=== PATIENT | male | born 1990 | race Two or more races ===

== ENCOUNTER 2016-08-10 10:07 | Inpatient (IN) | payer BC ==
[2016-08-10 11:01] VITALS: BMI 21.9
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
[2016-08-10] MEDS ORDERED: P-EPHED 60MG/TRIPROLIDI 2.5MG TABLET PO PRN (12:22)
[2016-08-10] MEDS ORDERED: MAGNESIUM CITRATE 300 ML BOTTLE PO PRN (12:22)
[2016-08-10] MEDS ORDERED: MAGNESIUM HYDROX 2400MG/30ML ORAL SUSPENSION 30 ML CUP PO PRN (12:22)
[2016-08-10] MEDS ORDERED: METHADONE HCL 10 MG TABLET (FOR DETOX USE ONLY) PO ONE ×2 (12:22→23:00)
[2016-08-10] MEDS ORDERED: MENTHOL/PHENOL 1 EACH UD MM PRN (12:22)
[2016-08-10] MEDS ORDERED: ACETAMINOPHEN 325 MG TABLET (FP) PO PRN (12:22)
[2016-08-10] MEDS ORDERED: hydrOXYzine PAMOATE 50 MG CAPSULE (FP) PO PRN (12:22)
[2016-08-10] MEDS ORDERED: IBUPROFEN 400 MG TABLET (FP) PO PRN (12:22)
[2016-08-10] MEDS ORDERED: diphenhydrAMINE HCL 50 MG CAPSULE PO PRN (12:22)
[2016-08-10] MEDS ORDERED: MAG HYDROX/AL HYDROX/SIMETH 30 ML UNIT-DOSE CUP PO PRN (12:22)
[2016-08-10] MEDS ORDERED: guaiFENesin/D-METHORPHAN HB 10 ML UNIT-DOSE CUPS PO PRN (12:22)
[2016-08-10] MEDS ORDERED: LOPERAMIDE HCL 2 MG CAPSULE PO PRN (12:22)
[2016-08-10] MEDS ORDERED: diazePAM 5 MG TABLET PO ONE (12:43)
[2016-08-10] MEDS ORDERED: ALBUTEROL SO4 6.7 GM HFA INHALER IH PRN (13:18)
[2016-08-10] MEDS: NICOTINE 21 MG/24 HOURS TOPICAL PATCH TD SCH (14:18)
[2016-08-10] MEDS: GABAPENTIN 400 MG CAPSULE (FP) PO SCH ×2 (14:18→22:05)
[2016-08-10] MEDS: diazePAM 5 MG TABLET PO SCH ×2 (14:19→22:05)
[2016-08-10] MEDS: NICOTINE POLACRILEX 2 MG GUM BC PRN (14:19)
[2016-08-10 15:39] LABS: HIV 1 & 2 AB NEGATIVE; HIV 1 AGp24 NEGATIVE
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
[2016-08-10 17:24] LABS: URINE APPEARANCE CLEAR; URINE BILIRUBIN NEGATIVE (NEGATIVE); URINE BLOOD NEGATIVE (NEGATIVE); URINE COLOR DKYELLOW; URINE GLUCOSE (UA) NEGATIVE (NEGATIVE); URINE KETONE TRACE (NEGATIVE); URINE LEUK ESTERASE NEGATIVE (NEGATIVE); URINE NITRITE NEGATIVE (NEGATIVE); URINE PROTEIN NEGATIVE (NEGATIVE); URINE UROBILINOGEN 2.0 E.U/dl E.U./dl (0.2-1.0)
[2016-08-10] MEDS: diazePAM 5 MG TABLET PO PRN (18:41)
[2016-08-10] MEDS: THIAMINE HCL 100 MG TABLET (FP) PO SCH (22:04)
[2016-08-10] MEDS: cloNIDine HCL 0.1 MG TABLET PO SCH (22:05)
[2016-08-10] MEDS: ZOLPIDEM TARTRATE 10 MG TABLET (PARK CARE ONLY) PO PRN (22:05)
[2016-08-10] MEDS: CYCLOBENZAPRINE HCL 10 MG TABLET (FP) PO PRN (22:05)
[2016-08-11] MEDS: diazePAM 5 MG TABLET PO PRN ×3 (00:48→20:10)
[2016-08-11] MEDS: GABAPENTIN 400 MG CAPSULE (FP) PO SCH ×4 (05:55→22:10)
[2016-08-11] MEDS: diazePAM 5 MG TABLET PO SCH ×4 (05:55→22:10)
[2016-08-11] MEDS: CYCLOBENZAPRINE HCL 10 MG TABLET (FP) PO PRN ×2 (05:57→20:10)
[2016-08-11 09:48] LABS: MCH 30.7 pg (25.7-33.7); MCHC 33.2 g/dl (32.0-35.9); MEAN CELL VOLUME 92.5 fl (80-96); MEAN PLT VOLUME 9.4 fl (7.5-11.1); PLATELET COUNT 223 K/MM3 (134-434); RDW 13.1 % (11.9-15.9); WHITE BLOOD COUNT 8.3 K/mm3 (4.0-10.0)
[2016-08-11] MEDS ORDERED: METHADONE HCL 10 MG TABLET (FOR DETOX USE ONLY) PO SCH (10:00)
[2016-08-11] MEDS: cloNIDine HCL 0.1 MG TABLET PO SCH ×2 (10:10→22:10)
[2016-08-11] MEDS: PRENATAL VITAMINS W/ FOLIC ACID TABLET (FP) PO SCH (10:11)
[2016-08-11] MEDS: NICOTINE 21 MG/24 HOURS TOPICAL PATCH TD SCH (10:11)
[2016-08-11] MEDS: NICOTINE POLACRILEX 2 MG GUM BC PRN ×2 (10:13→20:11)
[2016-08-11 10:41] LABS: ALBUMIN 3.9 g/dl (3.4-5.0); ALK PHOS 207 U/L (45-117); ANION GAP 11 (8-16); BILIRUBIN,TOTAL 0.3 mg/dL (0.2-1.0); CO2 28 mmol/L (21-32); COCKROFT - GAULT 126.38; CREATININE 0.9 mg/dL (0.7-1.3); GLUCOSE,RANDOM 102 mg/dL (74-106); SGOT/AST 30 U/L (15-37); SGPT/ALT 40 U/L (12-78); TOT PROT 7.2 g/dl (6.4-8.2)
--- NOTE | 2016-08-11 12:08 | PN ---
[facility] CIWA - CIWA Score Nausea/Vomitin Muscle Tremors: 3 Anxiety: 5 Agitation: 4-Moderately Restless Paroxysmal Sweats: 2 Orientation: 1-Uncertain about Date Tacttile Disturbances: 3-Moderate Itch/Numb/Burn Auditory Disturbances: 0-None Visual Disturbances: 0-None Headache: 0-None Present CIWA-Ar Total Score: 23 BHS COWS - Scale Resting Pulse: 0= [place] 80 or Below Sweatin=Flushed/Facial Moisture Restless Observation: 1= Difficult to Sit Still Pupil Size: 0= Normal to Room Light Bone or Joint Aches: 2= Severe Diffuse Aches Runny Nose/ Eye Tearin= Nasal Congestion GI Upset > 30mins: 1= Stomach Cramp Tremor Observation of Outstretched Hands: 2= Slight Tremor Visible Yawning Observation: 0= None Anxiety or Irritability: 2=Irritable/Anxious Goose Flesh Skin: 3=Piloerection COWS Score: 14 S Progress Note (SOAP) Subjective: Stomach Cramping, Interrupted sleep, Hot / Cold sensations, Sweating, Back Ache , Tremors, Anxious. Objective: PT. A & O X 2 (DISORIENTED ABOUT DAY / DATE). PT. OBSERVED AMBULATING ON UNIT. 08/11/16 12:05 Vital Signs Temperature 96.8 F L 08/11/16 09:14 Pulse Rate 46 L 08/11/16 09:14 Respiratory Rate 18 08/11/16 09:14 Blood Pressure 110/70 08/11/16 09:14 O2 Sat by Pulse Oximetry (%) Laboratory Last Values WBC 8.3 K/mm3 (4.0-10.0) 08/11/16 06:00 RBC 4.28 M/mm3 (4.00-5.60) 08/11/16 06:00 Hgb 13.2 GM/dL (11.7-16.9) 08/11/16 06:00 Hct 39.6 % (35.4-49) 08/11/16 06:00 MCV 92.5 fl (80-96) 08/11/16 06:00 MCHC 33.2 g/dl (32.0-35.9) 08/11/16 06:00 RDW 13.1 % (11.9-15.9) 08/11/16 06:00 Plt Count 223 K/MM3 (134-434) 08/11/16 06:00 MPV 9.4 fl (7.5-11.1) 08/11/16 06:00 Sodium 142 mmol/L (136-145) 08/11/16 06:00 Potassium 4.1 mmol/L (3.5-5.1) 08/11/16 06:00 Chloride 103 mmol/L (98-107) 08/11/16 06:00 Carbon Dioxide 28 mmol/L (21-32) 08/11/16 06:00 Anion Gap 11 (8-16) 08/11/16 06:00 BUN 12 mg/dL (7-18) 08/11/16 06:00 Creatinine 0.9 mg/dL (0.7-1.3) 08/11/16 06:00 Creat Clearance w eGFR > 60 (>60) 08/11/16 06:00 Random Glucose 102 mg/dL (74-106) 08/11/16 06:00 Calcium 9.0 mg/dL (8.5-10.1) 08/11/16 06:00 Total Bilirubin 0.3 mg/dL (0.2-1.0) 08/11/16 06:00 AST 30 U/L (15-37) 08/11/16 06:00 ALT 40 U/L (12-78) 08/11/16 06:00 Alkaline Phosphatase 207 U/L (45-117) H 08/11/16 06:00 Total Protein 7.2 g/dl (6.4-8.2) 08/11/16 06:00 Albumin 3.9 g/dl (3.4-5.0) 08/11/16 06:00 Urine Color Dkyellow 08/10/16 15:00 Urine Appearance Clear 08/10/16 15:00 Urine pH 5.0 (5.0-8.0) 08/10/16 15:00 Ur Specific [place] 1.025 (1.005-1.025) 08/10/16 15:00 Urine Protein Negative (NEGATIVE) 08/10/16 15:00 Urine Glucose (UA) Negative (NEGATIVE) 08/10/16 15:00 Urine Ketones Trace (NEGATIVE) H 08/10/16 15:00 Urine Blood Negative (NEGATIVE) 08/10/16 15:00 Urine Nitrite Negative (NEGATIVE) 08/10/16 15:00 Urine Bilirubin Negative (NEGATIVE) 08/10/16 15:00 Urine Urobilinogen 2.0 e.u/dl E.U./dl (0.2-1.0) 08/10/16 15:00 Ur Leukocyte Esterase Negative (NEGATIVE) 08/10/16 15:00 HIV 1&2 Antibody Screen Negative 08/10/16 12:30 HIV P24 Antigen Negative 08/10/16 12:30 LABS NOTED. Assessment: 08/11/16 12:07 WITHDRAWAL SYMPTOMS. Plan: CONTINUE DETOX. ADVISED PATIENT TO FOLLOW-UP WITH PSYCHOLOGIST EDUCATIONAL AFTER DISCHARGE FROM DETOX FOR GENERAL MEDICAL ASSESSMENT AND FOR ABNORMAL ADMISSION LAB VALUES.
--- NOTE | 2016-08-11 12:50 | EKG ---
Test Reason : Blood Pressure : / mmHG Vent. Rate : 050 BPM Atrial Rate : 050 BPM P-R Int : 172 ms QRS Dur : 110 ms QT Int : 438 ms P-R-T Axes : 030 090 063 degrees QTc Int : 399 ms SINUS BRADYCARDIA RIGHTWARD AXIS INCOMPLETE RIGHT BUNDLE BRANCH BLOCK BORDERLINE ECG NO PREVIOUS ECGS AVAILABLE Confirmed by BRITT CHASE, SHANNEN ([id number]) on 08/11/2016 12:50:46 PM Referred By: Confirmed By:SHANNEN DE LA TORRE MD
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
[2016-08-11] MEDS: THIAMINE HCL 100 MG TABLET (FP) PO SCH (22:10)
[2016-08-11] MEDS: ZOLPIDEM TARTRATE 10 MG TABLET (PARK CARE ONLY) PO PRN (22:10)
[2016-08-12] MEDS: GABAPENTIN 400 MG CAPSULE (FP) PO SCH ×3 (05:56→22:03)
[2016-08-12] MEDS: diazePAM 5 MG TABLET PO PRN ×3 (05:57→19:00)
[2016-08-12] MEDS: NICOTINE POLACRILEX 2 MG GUM BC PRN ×3 (06:51→17:21)
[2016-08-12] MEDS: diazePAM 5 MG TABLET PO SCH ×2 (10:05→22:03)
[2016-08-12] MEDS: cloNIDine HCL 0.1 MG TABLET PO SCH ×2 (10:05→22:03)
[2016-08-12] MEDS: PRENATAL VITAMINS W/ FOLIC ACID TABLET (FP) PO SCH (10:05)
[2016-08-12] MEDS: METHADONE HCL 5 MG TABLET (FOR DETOX USE ONLY) PO SCH (10:06)
[2016-08-12] MEDS: NICOTINE 21 MG/24 HOURS TOPICAL PATCH TD SCH (10:06)
[2016-08-12] MEDS: CYCLOBENZAPRINE HCL 10 MG TABLET (FP) PO PRN ×2 (10:08→21:01)
--- NOTE | 2016-08-12 12:36 | PN ---
S CIWA - CIWA Score Nausea/Vomitin-No Nausea/No Vomiting Muscle Tremors: 4-Moderate,w/Arms Extend Anxiety: 5 Agitation: 4-Moderately Restless Paroxysmal Sweats: 3 Orientation: 0-Oriented Tacttile Disturbances: 2-Mild Itch/Numbness/Burn Auditory Disturbances: 3-Moderate Harsh/Frighten Visual Disturbances: 1-Very Mild Sensitivity Headache: 2-Mild CIWA-Ar Total Score: 24 BHS COWS - Scale Resting Pulse: 0= [place] 80 or Below Sweatin=Flushed/Facial Moisture Restless Observation: 1= Difficult to Sit Still Pupil Size: 0= Normal to Room Light Bone or Joint Aches: 2= Severe Diffuse Aches Runny Nose/ Eye Tearin= Nasal Congestion GI Upset > 30mins: 2= Nausea/Diarrhea Tremor Observation of Outstretched Hands: 2= Slight Tremor Visible Yawning Observation: 0= None Anxiety or Irritability: 4=Extreme Anxiety Goose Flesh Skin: 3=Piloerection COWS Score: 17 S Progress Note (SOAP) Subjective: Diarrhea, Back Ache, Body Aches, H/A, Tremors, Anxious, Sweating. Objective: PT. A & O X 3, OBSERVED AMBULATING ON UNIT. 08/12/16 12:34 Vital Signs Temperature 96.4 F L 08/12/16 09:58 Pulse Rate 54 L 08/12/16 09:58 Respiratory Rate 18 08/12/16 09:58 Blood Pressure 114/58 08/12/16 09:58 O2 Sat by Pulse Oximetry (%) Laboratory Last Values WBC 8.3 K/mm3 (4.0-10.0) 08/11/16 06:00 RBC 4.28 M/mm3 (4.00-5.60) 08/11/16 06:00 Hgb 13.2 GM/dL (11.7-16.9) 08/11/16 06:00 Hct 39.6 % (35.4-49) 08/11/16 06:00 MCV 92.5 fl (80-96) 08/11/16 06:00 MCHC 33.2 g/dl (32.0-35.9) 08/11/16 06:00 RDW 13.1 % (11.9-15.9) 08/11/16 06:00 Plt Count 223 K/MM3 (134-434) 08/11/16 06:00 MPV 9.4 fl (7.5-11.1) 08/11/16 06:00 Sodium 142 mmol/L (136-145) 08/11/16 06:00 Potassium 4.1 mmol/L (3.5-5.1) 08/11/16 06:00 Chloride 103 mmol/L (98-107) 08/11/16 06:00 Carbon Dioxide 28 mmol/L (21-32) 08/11/16 06:00 Anion Gap 11 (8-16) 08/11/16 06:00 BUN 12 mg/dL (7-18) 08/11/16 06:00 Creatinine 0.9 mg/dL (0.7-1.3) 08/11/16 06:00 Creat Clearance w eGFR > 60 (>60) 08/11/16 06:00 Random Glucose 102 mg/dL (74-106) 08/11/16 06:00 Calcium 9.0 mg/dL (8.5-10.1) 08/11/16 06:00 Total Bilirubin 0.3 mg/dL (0.2-1.0) 08/11/16 06:00 AST 30 U/L (15-37) 08/11/16 06:00 ALT 40 U/L (12-78) 08/11/16 06:00 Alkaline Phosphatase 207 U/L (45-117) H 08/11/16 06:00 Total Protein 7.2 g/dl (6.4-8.2) 08/11/16 06:00 Albumin 3.9 g/dl (3.4-5.0) 08/11/16 06:00 Urine Color Dkyellow 08/10/16 15:00 Urine Appearance Clear 08/10/16 15:00 Urine pH 5.0 (5.0-8.0) 08/10/16 15:00 Ur Specific [place] 1.025 (1.005-1.025) 08/10/16 15:00 Urine Protein Negative (NEGATIVE) 08/10/16 15:00 Urine Glucose (UA) Negative (NEGATIVE) 08/10/16 15:00 Urine Ketones Trace (NEGATIVE) H 08/10/16 15:00 Urine Blood Negative (NEGATIVE) 08/10/16 15:00 Urine Nitrite Negative (NEGATIVE) 08/10/16 15:00 Urine Bilirubin Negative (NEGATIVE) 08/10/16 15:00 Urine Urobilinogen 2.0 e.u/dl E.U./dl (0.2-1.0) 08/10/16 15:00 Ur Leukocyte Esterase Negative (NEGATIVE) 08/10/16 15:00 RPR Titer Nonreactive (NONREACTIVE) 08/11/16 06:00 HIV 1&2 Antibody Screen Negative 08/10/16 12:30 HIV P24 Antigen Negative 08/10/16 12:30 LABS NOTED. Assessment: 08/12/16 12:34 WITHDRAWAL SYMPTOMS. Plan: CONTINUE DETOX. PRN IMMODIUM FOR DIARRHEA. PATIENT ADVISED TO FOLLOW-UP WITH SWITCHBOARD OPERATOR RECEPTIONIST AFTER DISCHARGE FROM DETOX [facility] GENERAL MEDICAL ASSESSMENT AND FOR ABNORMAL ADMISSION LAB VALUES.
[2016-08-12] MEDS: ZOLPIDEM TARTRATE 10 MG TABLET (PARK CARE ONLY) PO PRN (22:03)
[2016-08-12] MEDS: THIAMINE HCL 100 MG TABLET (FP) PO SCH (22:03)
[2016-08-13] MEDS: GABAPENTIN 400 MG CAPSULE (FP) PO SCH ×3 (07:18→21:58)
[2016-08-13] MEDS: diazePAM 5 MG TABLET PO PRN (08:42)
[2016-08-13] MEDS: diazePAM 5 MG TABLET PO SCH ×2 (10:11→21:58)
[2016-08-13] MEDS: cloNIDine HCL 0.1 MG TABLET PO SCH ×2 (10:11→21:58)
[2016-08-13] MEDS: METHADONE HCL 5 MG TABLET (FOR DETOX USE ONLY) PO SCH (10:11)
[2016-08-13] MEDS: NICOTINE 21 MG/24 HOURS TOPICAL PATCH TD SCH (10:12)
[2016-08-13] MEDS: PRENATAL VITAMINS W/ FOLIC ACID TABLET (FP) PO SCH (10:12)
[2016-08-13] MEDS: NICOTINE POLACRILEX 2 MG GUM BC PRN ×2 (13:56→20:08)
[2016-08-13] MEDS: CYCLOBENZAPRINE HCL 10 MG TABLET (FP) PO PRN ×2 (13:56→20:08)
--- NOTE | 2016-08-13 14:53 | PN ---
[facility] Progress Note (SOAP) Subjective: Body aches, Anxious, Sweating, Tremors. Objective: PT. A& O X 3, OBSERVED AMBULATING ON UNIT. 08/13/16 14:51 Vital Signs Temperature 96.4 F L 08/13/16 10:29 Pulse Rate 58 L 08/13/16 10:29 Respiratory Rate 18 08/13/16 10:29 Blood Pressure 118/69 08/13/16 10:29 O2 Sat by Pulse Oximetry (%) Laboratory Last Values WBC 8.3 K/mm3 (4.0-10.0) 08/11/16 06:00 RBC 4.28 M/mm3 (4.00-5.60) 08/11/16 06:00 Hgb 13.2 GM/dL (11.7-16.9) 08/11/16 06:00 Hct 39.6 % (35.4-49) 08/11/16 06:00 MCV 92.5 fl (80-96) 08/11/16 06:00 MCHC 33.2 g/dl (32.0-35.9) 08/11/16 06:00 RDW 13.1 % (11.9-15.9) 08/11/16 06:00 Plt Count 223 K/MM3 (134-434) 08/11/16 06:00 MPV 9.4 fl (7.5-11.1) 08/11/16 06:00 Sodium 142 mmol/L (136-145) 08/11/16 06:00 Potassium 4.1 mmol/L (3.5-5.1) 08/11/16 06:00 Chloride 103 mmol/L (98-107) 08/11/16 06:00 Carbon Dioxide 28 mmol/L (21-32) 08/11/16 06:00 Anion Gap 11 (8-16) 08/11/16 06:00 BUN 12 mg/dL (7-18) 08/11/16 06:00 Creatinine 0.9 mg/dL (0.7-1.3) 08/11/16 06:00 Creat Clearance w eGFR > 60 (>60) 08/11/16 06:00 Random Glucose 102 mg/dL (74-106) 08/11/16 06:00 Calcium 9.0 mg/dL (8.5-10.1) 08/11/16 06:00 Total Bilirubin 0.3 mg/dL (0.2-1.0) 08/11/16 06:00 AST 30 U/L (15-37) 08/11/16 06:00 ALT 40 U/L (12-78) 08/11/16 06:00 Alkaline Phosphatase 207 U/L (45-117) H 08/11/16 06:00 Total Protein 7.2 g/dl (6.4-8.2) 08/11/16 06:00 Albumin 3.9 g/dl (3.4-5.0) 08/11/16 06:00 Urine Color Dkyellow 08/10/16 15:00 Urine Appearance Clear 08/10/16 15:00 Urine pH 5.0 (5.0-8.0) 08/10/16 15:00 Ur Specific [place] 1.025 (1.005-1.025) 08/10/16 15:00 Urine Protein Negative (NEGATIVE) 08/10/16 15:00 Urine Glucose (UA) Negative (NEGATIVE) 08/10/16 15:00 Urine Ketones Trace (NEGATIVE) H 08/10/16 15:00 Urine Blood Negative (NEGATIVE) 08/10/16 15:00 Urine Nitrite Negative (NEGATIVE) 08/10/16 15:00 Urine Bilirubin Negative (NEGATIVE) 08/10/16 15:00 Urine Urobilinogen 2.0 e.u/dl E.U./dl (0.2-1.0) 08/10/16 15:00 Ur Leukocyte Esterase Negative (NEGATIVE) 08/10/16 15:00 RPR Titer Nonreactive (NONREACTIVE) 08/11/16 06:00 HIV 1&2 Antibody Screen Negative 08/10/16 12:30 HIV P24 Antigen Negative 08/10/16 12:30 LABS NOTED. Assessment: 08/13/16 14:52 WITHDRAWAL SYMPTOMS. Plan: CONTINUE DETOX. ADVISED PATIENT TO FOLLOW-UP WITH TIRE TECHNICIAN AFTER DISCHARGE FROM DETOX FOR GENERAL MEDICAL ASSESSMENT AND FOR ABNORMAL ADMISSION LAB VALUES.
[2016-08-13] MEDS: THIAMINE HCL 100 MG TABLET (FP) PO SCH (21:58)
[2016-08-14] MEDS: GABAPENTIN 400 MG CAPSULE (FP) PO SCH (05:38)
[2016-08-14] MEDS: CYCLOBENZAPRINE HCL 10 MG TABLET (FP) PO PRN (05:40)
[2016-08-14] MEDS: NICOTINE POLACRILEX 2 MG GUM BC PRN (05:41)
[2016-08-14 06:29] VITALS: BP 117/74; PULSE 63; TEMP 97.1
[2016-08-14] MEDS ORDERED: diazePAM 5 MG TABLET PO SCH (10:00)
[2016-08-14] MEDS ORDERED: METHADONE HCL 10 MG TABLET (FOR DETOX USE ONLY) PO SCH (10:00)
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
[2016-08-15] MEDS ORDERED: METHADONE HCL 5 MG TABLET (FOR DETOX USE ONLY) PO SCH (06:00)
== END 2016-08-14 09:50 | disposition home or self-care (01) | DRG 773 ==
LOC: YASAS 10:07 → Y3N 12:22
PROVIDERS: ADMIT Internal Medicine Addiction Medicine; ATTEND Internal Medicine Addiction Medicine
PROC: HZ2ZZZZ Detoxification Services for Substance Abuse Treatment (ICD-10-PCS; principal; 2016-08-14)
DX: F11.23 Opioid dependence with withdrawal (principal); F17.210 Nicotine dependence, cigarettes, uncomplicated; F19.24 Other psychoactive substance dependence with psychoactive substance-induced mood disorder; F39 Unspecified mood [affective] disorder; F43.10 Post-traumatic stress disorder, unspecified; J45.20 Mild intermittent asthma, uncomplicated; M54.5 Low back pain; G89.29 Other chronic pain; R63.4 Abnormal weight loss; Z68.21 Body mass index [BMI] 21.0-21.9, adult; G72.89 Other specified myopathies
CPT/HCPCS: 36415; 71010-TC; 80053; 81003; 85027; 86593; 87389; 93005; 93010

== ENCOUNTER 2018-10-08 15:37 | Inpatient (IN) | payer BC ==
[2018-10-08 19:32] VITALS: BMI 23.7
[2018-10-08] MEDS ORDERED: MELATONIN 5 MG TABLETS PO PRN (22:00)
--- NOTE | 2018-10-08 23:01 | HP ---
CIWA Score Nausea/Vomitin-No Nausea/No Vomiting Muscle Tremors: None Anxiety: 0-No Anxiety, at Ease Agitation: 0-Normal Activity Paroxysmal Sweats: 3 (chills) Orientation: 3-Disoriented Date>2 days Tacttile Disturbances: 1-Very Mild Itch/Numbness Auditory Disturbances: 0-None Visual Disturbances: 1-Very Mild Sensitivity Headache: 2-Mild CIWA-Ar Total Score: 10 - Admission Criteria OASAS Guidelines: Admission for Medically Managed Detox: Requires at least one of the followin. CIWA greater than 12 2. Seizures within the past 24 hours 3. Delirium tremens within the past 24 hours 4. Hallucinations within the past 24 hours 5. Acute intervention needed for co occurring medical disorder 6. Acute intervention needed for co occurring psychiatric disorder 7. Severe withdrawal that cannot be handled at a lower level of care (continued vomiting, continued diarrhea, abnormal vital signs) requiring intravenous medication and/or fluids 8. Patient presents the following: CIWA greater than 12, Acute intervention needed for co-occurring med or psych disorder Admission Criteria Met: Admission criteria met Admission ROS [facility] Chief Complaint: C/O WITHDRAWAL SX'S Allergies/Adverse Reactions: Allergies Allergy/AdvReac Type Severity Reaction Status Date / Time Fish Containing Products Allergy Severe Verified 10/08/18 19:18 No Known Drug Allergies Allergy Verified 10/08/18 19:18 History of Present Illness: 28 Y.O. 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 HE PRESENTS WITH C/O WITHDRAWAL SX'S. SELF REFERRED. LAST HERE 2 YEARS AGO. REPORTS DAILY USE OF XANAX. LAST USE A FEW HOURS AGO. REPORTS CLEAN TIME 1.5 YEARS. RELASPING 6 MONTHS AGO. HE ATTENDS START MMTP. REPORTED METHADONE DOSE 60 MG. LDM 1 DAY AGO IN [facility]. CLIENT REPORTS HE WAS DC FROM [facility] 1 DAY AGO AFTER 5 DAY DETOX. HE REPORTS HE WAS USING XANAX AND HEROIN WHILE THERE. DRUGS THAT HE SNUCK IN BY "BOOFING IT" DENIES HX/O SEIZURES, DRUG OVERDOSE, PRESENTLY DENIES SI/HI/AVH. DOMICILED, EMPLOYED, PAROLE. CIWA IS A SUBJECTIVE 12 .CLIENT PRESENTS WITH PERIOD OF DROWSINESS BUT EASILY AROUSABLE WITH REPEATED VERBAL PROMPTING. D/W CLIENT ABOUT REHAB SERVICES CLIENT AGREES. AT THIS TIME WILL ADMIT TO REHAB AND CONT TO MONITOR FOR ANY ACUTE WITHDRAWAL SX 'S. CLIENT WAS ALSO ASKED TO SQUAT AND COUGH TO CHECK FOR CONTRABAND Search Terms: ricky pisano, 1990 Search Date: 10/08/2018 11:05:42 PM The Drug Utilization Report below displays all of the controlled substance prescriptions, if any, that your patient has filled in the last twelve months. The information displayed on this report is compiled from pharmacy submissions to the Department, and accurately reflects the information as submitted by the pharmacies. This report was requested by: Pilo Rubin | Reference #: [id number] Exam Limitations: Other (frequent periods of drowsiness) - Ebola screening Have you traveled outside of the country in the last 21 days: No (N) Have you had contact with anyone from an Ebola affected area: No Do you have a fever: No - Review of Systems Constitutional: Chills EENT: reports: No Symptoms Reported Respiratory: reports: No Symptoms reported Cardiac: reports: No Symptoms Reported GI: reports: Constipated : reports: Other (hesitancy) Musculoskeletal: reports: No Symptoms Reported Integumentary: reports: No Symptoms Reported Neuro: reports: Headache (hx/o migraines), Numbness Endocrine: reports: No Symptoms Reported Hematology: reports: No Symptoms Reported Psychiatric: reports: Depressed (denies si/hi) Other Systems: Reviewed and Negative Patient History - Patient Medical History Hx Anemia: No Hx Asthma: Yes Hx Chronic Obstructive Pulmonary Disease (COPD): No Hx Cancer: No Hx Cardiac Disorders: No Hx Congestive Heart Failure: No Hx Hypertension: No Hx Hypercholesterolemia: No Hx Pacemaker: No HX Cerebrovascular Accident: No Hx Seizures: Yes (last 06/17) Hx Dementia: No Hx Diabetes: No Hx Gastrointestinal Disorders: No Hx Liver Disease: No Hx Genitourinary Disorders: No Hx Sexually Transmitted Disorders: No Hx Renal Disease (ESRD): No Hx Thyroid Disease: No Hx Human Immunodeficiency Virus (HIV): No Hx Hepatitis C: No Hx Depression: Yes Hx Suicide Attempt: No (hx/o si last episode 2 years ago. denies attempts) Hx Bipolar Disorder: Yes Hx Schizophrenia: No - Patient Surgical History Past Surgical History: No - PPD History Previous Implant?: Yes Documented Results: Negative w/o proof Implanted On Prior [facility] Admission?: No PPD to be Administered?: Yes - Smoking Cessation Smoking history: Current every day smoker Have you smoked in the past 12 months: Yes Aproximately how many cigarettes per day: 20 Cigars Per Day: 0 Hx Chewing Tobacco Use: No Initiated information on smoking cessation: Yes 'Breaking Loose' booklet given: 10/08/18 - Substance & Tx. History Hx Alcohol Use: No Hx Substance Use: Yes Substance Use Type: Cocaine, Heroin, Marijuana, Opiates, Prescribed (methadone) - Substances abused Cocaine Substance route: Inhalation Frequency: Daily Amount used: $250 Age of first use: 20 Date of last use: 10/08/18 Heroin Substance route: Inhalation Frequency: Daily Amount used: $60 Age of first use: 20 Date of last use: 10/08/18 Marijuana/Hashish Substance route: Smoking Frequency: Daily Amount used: $75 Age of first use: 14 Date of last use: 10/08/18 Alprazolam (Xanax) Other (specify): 2mg Substance route: Oral Frequency: Daily Amount used: 1 bar Age of first use: 27 Date of last use: 10/07/18 Family Disease History - Family Disease History Family Disease History: Heart Disease: Father, Other: Mother (bipolar/ alcoholic / crack cocaine) Admission Physical Exam [facility] - Vital Signs Vital Signs: Vital Signs - 24 hr 10/08/18 10/08/18 19:21 22:14 Temperature 97.4 F L 97.4 F L Pulse Rate 79 79 Respiratory 18 18 Rate Blood Pressure 119/81 119/81 - Physical General Appearance: Yes: Other (frequently drowsi) HEENTM: Yes: EOMI, Normocephalic, Pharynx Normal Respiratory: Yes: Chest Non-Tender, Lungs Clear, Normal Breath Sounds, No Respiratory Distress, No Accessory Muscle Use Neck: Yes: No masses,lesions,Nodules, Supple, Trachea in good position Breast: Yes: Breast Exam Deferred Cardiology: Yes: Regular Rhythm, Regular Rate, S1, S2 Abdominal: Yes: Normal Bowel Sounds, Non Tender, Flat, Soft Genitourinary: Yes: Within Normal Limits Back: Yes: Normal Inspection Musculoskeletal: Yes: full range of Motion, Gait Steady Extremities: Yes: Normal Range of Motion, Non-Tender Neurological: Yes: Motor Strength 5/5, Depressed Affect (denies si/hi) Integumentary: Yes: Warm, Rash (psoriatic like rash to haNDS) Lymphatic: Yes: Within Normal Limits - Diagnostic (1) Uncomplicated opioid dependence Current Visit: Yes Status: Acute (2) Methadone maintenance therapy patient Current Visit: Yes Status: Acute (3) Sedative, hypnotic or anxiolytic dependence, uncomplicated Current Visit: Yes Status: Acute (4) Asthma Current Visit: No Status: Chronic Qualifiers: Asthma severity: mild intermittent Asthma complication type: uncomplicated (5) Bipolar disorder Current Visit: No Status: Chronic Qualifiers: Active/Remission status: remission status unspecified Qualified Code(s): F31.9 - Bipolar disorder, unspecified Comment: History. (6) Nicotine dependence Current Visit: No Status: Chronic Qualifiers: Nicotine product type: cigarettes Substance use status: uncomplicated Qualified Code(s): F17.210 - Nicotine dependence, cigarettes, uncomplicated Cleared for Admission [facility] - Detox or Rehab Detox Regimen/Protocol: Not Applicable Claeared for Rehab Admission: Yes Breathalyzer - Breathalyzer Breathalyzer: 0 Urine Drug Screen - Test Device Lot number: [id number] Expiration date: 07/31/20 - Control Is test valid?: Yes - Results Drug screen NEGATIVE: Yes Urine drug screen results: THC-Marijuana, FATEMEH-Cocaine, MET-Methamphetamine, FEN- Fentanyl, MOP-Opiates, OXY-Oxycodone, MTD-Methadone, BZO-Benzodiazepines Inpatient Rehab Admission - Rehab Decision to Admit Inpatient rehab admission?: Yes - Initial Determination Are CD services needed?: Yes Free of communicable disease: Yes Not in need of hospitalization: Yes - Rehab Admission Criteria Previous failed treatment: Yes Poor recovery environment: Yes Comorbidities: Yes Lacks judgement: No Patient is meeting Inpatient Rehab admission criteria:: Yes
[2018-10-08] MEDS ORDERED: LOPERAMIDE HCL 2 MG CAPSULE PO PRN (23:44)
[2018-10-08] MEDS ORDERED: MENTHOL/PHENOL 1 EACH UD MM PRN (23:44)
[2018-10-08] MEDS ORDERED: MAGNESIUM CITRATE 300 ML BOTTLE PO PRN (23:44)
[2018-10-08] MEDS ORDERED: MAGNESIUM HYDROX 2400MG/30ML ORAL SUSPENSION 30 ML CUP PO PRN (23:44)
[2018-10-08] MEDS ORDERED: IBUPROFEN 400 MG TABLET (FP) PO PRN (23:44)
[2018-10-08] MEDS ORDERED: hydrOXYzine PAMOATE 50 MG CAPSULE (FP) PO PRN (23:44)
[2018-10-08] MEDS ORDERED: MAG HYDROX/AL HYDROX/SIMETH 30 ML UNIT-DOSE CUP PO PRN (23:44)
[2018-10-08] MEDS ORDERED: guaiFENesin 200 MG/10 ML 10 ML UNIT-DOSE CUPS PO PRN (23:44)
[2018-10-08] MEDS ORDERED: ACETAMINOPHEN 325 MG TABLET (FP) PO PRN (23:44)
[2018-10-08] MEDS ORDERED: NICOTINE POLACRILEX 2 MG GUM BC PRN (23:44)
[2018-10-08] MEDS ORDERED: P-EPHED 60MG/TRIPROLIDI 2.5MG TABLET PO PRN (23:44)
[2018-10-08] MEDS ORDERED: HYDROCORTISONE 1% TOPICAL OINT 30 GM TUBE TP PRN (23:55)
[2018-10-09] MEDS ORDERED: METHADONE HCL 10 MG TABLET PO SCH (07:45)
[2018-10-09] MEDS ORDERED: METHADONE 40 MG, METHADONE 20 MG PO ONE (08:30)
[2018-10-09] MEDS ORDERED: METHADONE HCL 10 MG TABLET ONE (09:00)
[2018-10-09] MEDS ORDERED: METHADONE HCL 40 MG DISPERSABLE TABLET ONE (09:01)
[2018-10-09] MEDS ORDERED: PRENATAL VITAMINS W/ FOLIC ACID TABLET (FP) PO SCH (10:00)
[2018-10-09] MEDS ORDERED: NICOTINE 21 MG/24 HOURS TOPICAL PATCH TD SCH (10:00)
[2018-10-09 10:24] VITALS: BP 124/60; PULSE 76; TEMP 98.1
--- NOTE | 2018-10-09 11:28 | PN ---
[facility] Progress Note (SOAP) Subjective: Patient states he is leaving now. Refuses to be seen by this provider. Objective: PE: Unable to conduct complete physical exam because the patient refuses to be seen by this provider. Upon observation it is clear that the patient is oriented x3, full weight bearing and mobility. Skin clear. 10/09/18 11:25 Vital Signs (72 hours) 10/08/18 10/08/18 10/09/18 19:21 22:14 00:40 Temperature 97.4 F L 97.4 F L 97.1 F L Pulse Rate 79 79 77 Respiratory 18 18 18 Rate Blood Pressure 119/81 119/81 130/73 10/09/18 10/09/18 03:30 10:23 Temperature 98.1 F Pulse Rate 76 Respiratory 18 19 Rate Blood Pressure 124/60 Assessment: Medically stable for discharge. Discharge dx: Administrative discharge-insurance Opioid Dependence, chronic LBP, Chronic Seizure Disorder Asthma 10/09/18 11:27 10/09/18 11:32 Plan: Patient is leaving of his own accord. No discharge plan in place.
[2018-10-09 12:24] LABS: HEMATOCRIT 40.4 % (35.4-49); HEMOGLOBIN 13.5 GM/dL (11.7-16.9); MCHC 33.5 g/dl (32.0-35.9); MEAN CELL VOLUME 92.5 fl (80-96); MEAN PLT VOLUME 8.8 fl (7.5-11.1); PLATELET COUNT 222 K/MM3 (134-434); RBC 4.36 M/mm3 (4.00-5.60); RDW 12.9 % (11.9-15.9); WHITE BLOOD COUNT 8.9 K/mm3 (4.0-10.0)
[2018-10-09 12:56] LABS: ALBUMIN 3.6 g/dl (3.4-5.0); BILIRUBIN,TOTAL 0.2 mg/dL (0.2-1); BLOOD UREA NITROGEN 14.9 mg/dL (7-18); CALCIUM 8.8 mg/dL (8.5-10.1); CREATININE 0.9 mg/dL (0.55-1.3); POTASSIUM 4.5 mmol/L (3.5-5.1); TOT PROT 6.5 g/dl (6.4-8.2)
--- NOTE | 2018-10-09 14:34 | EKG ---
Test Reason : Blood Pressure : / mmHG Vent. Rate : 075 BPM Atrial Rate : 075 BPM P-R Int : 168 ms QRS Dur : 124 ms QT Int : 404 ms P-R-T Axes : 057 080 061 degrees QTc Int : 451 ms NORMAL SINUS RHYTHM RSR' OR QR PATTERN IN V1 SUGGESTS RIGHT VENTRICULAR CONDUCTION DELAY BORDERLINE ECG WHEN COMPARED WITH ECG OF 10-AUG-2016 12:48, VENT. RATE HAS INCREASED BY 25 BPM QT HAS LENGTHENED Confirmed by Cory Griggs ([id number]) on 10/09/2018 2:34:23 PM Referred By: Confirmed By:Cory Griggs
[2018-10-09] MEDS ORDERED: THIAMINE HCL 100 MG TABLET (FP) PO SCH (22:00)
[2018-10-10] MEDS ORDERED: METHADONE 40 MG, METHADONE 20 MG PO SCH (06:00)
== END 2018-10-09 11:55 | disposition home or self-care (01) | DRG 772 ==
LOC: YASAS 15:37 → Y3W 23:52
PROVIDERS: ADMIT Neuromusculoskeletal Medicine & OMM; ATTEND Neuromusculoskeletal Medicine & OMM
PROC: HZ42ZZZ Group Counseling for Substance Abuse Treatment, Cognitive-Behavioral (ICD-10-PCS; principal; 2018-10-08)
DX: F11.20 Opioid dependence, uncomplicated (principal); F13.20 Sedative, hypnotic or anxiolytic dependence, uncomplicated; F14.20 Cocaine dependence, uncomplicated; F12.20 Cannabis dependence, uncomplicated; F17.210 Nicotine dependence, cigarettes, uncomplicated; F31.9 Bipolar disorder, unspecified; J45.20 Mild intermittent asthma, uncomplicated; Z86.69 Personal history of other diseases of the nervous system and sense organs
CPT/HCPCS: 36415; 80053; 85027; 86480; 86593; 93005; 93010

== ENCOUNTER 2018-10-17 11:54 | Inpatient (IN) | payer BC ==
[2018-10-17 13:32] VITALS: BMI 25.0
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
[2018-10-17] MEDS ORDERED: MAGNESIUM CITRATE 300 ML BOTTLE PO PRN (17:02)
[2018-10-17] MEDS ORDERED: MELATONIN 5 MG TABLETS PO PRN (17:02)
[2018-10-17] MEDS ORDERED: MENTHOL/PHENOL 1 EACH UD MM PRN (17:02)
[2018-10-17] MEDS ORDERED: IBUPROFEN 400 MG TABLET (FP) PO PRN (17:02)
[2018-10-17] MEDS ORDERED: MAGNESIUM HYDROX 2400MG/30ML ORAL SUSPENSION 30 ML CUP PO PRN (17:02)
[2018-10-17] MEDS ORDERED: BISMUTH SUBSALICYLATE 524 MG/30 ML UD PO PRN (17:02)
[2018-10-17] MEDS ORDERED: ACETAMINOPHEN 325 MG TABLET (FP) PO PRN ×2 (17:02)
[2018-10-17] MEDS ORDERED: diazePAM 5 MG TABLET PO PRN (17:02)
[2018-10-17] MEDS ORDERED: METHOCARBAMOL 500 MG TABLET PO PRN (17:02)
[2018-10-17] MEDS ORDERED: MAG HYDROX/AL HYDROX/SIMETH 30 ML UNIT-DOSE CUP PO PRN (17:02)
[2018-10-17] MEDS ORDERED: ALBUTEROL SO4 8 GM HFA INHALER IH PRN (17:04)
[2018-10-17] MEDS: METHADONE HCL 10 MG TABLET (FOR DETOX USE ONLY) PO SCH (18:25)
[2018-10-17] MEDS: NICOTINE 7 MG/24 HOURS TOPICAL PATCH TD SCH (18:28)
[2018-10-17] MEDS: NICOTINE POLACRILEX 2 MG GUM BUC PRN ×2 (18:30→21:46)
[2018-10-17] MEDS: diazePAM 5 MG TABLET PO SCH (21:44)
[2018-10-17] MEDS: THIAMINE HCL 100 MG TABLET (FP) PO SCH (21:44)
[2018-10-18] MEDS: diazePAM 5 MG TABLET PO SCH ×3 (06:56→22:09)
--- NOTE | 2018-10-18 09:30 | PN ---
S CIWA - CIWA Score Nausea/Vomitin Muscle Tremors: 3 Anxiety: 3 Agitation: 4-Moderately Restless Paroxysmal Sweats: 2 Orientation: 0-Oriented Tacttile Disturbances: 1-Very Mild Itch/Numbness Auditory Disturbances: 0-None Visual Disturbances: 0-None Headache: 1-Very Mild CIWA-Ar Total Score: 17 S Progress Note (SOAP) Subjective: patient admitted for benzo withdrawal symptoms, reports currently on parole and linked to methadone maintenance program in the community and reports on maintenance dose of 60 mg qd and has not attended his program in about to weeks. C/o of nausea, vomiting, chills, sweats, interrupted sleep, irritable Objective: 10/18/18 13:57 Vital Signs Temperature 97.7 F 10/18/18 13:28 Pulse Rate 58 L 10/18/18 13:28 Respiratory Rate 16 10/18/18 13:28 Blood Pressure 104/54 L 10/18/18 13:28 O2 Sat by Pulse Oximetry (%) Laboratory Last Values WBC 6.1 K/mm3 (4.0-10.0) 10/18/18 07:00 RBC 4.37 M/mm3 (4.00-5.60) 10/18/18 07:00 Hgb 13.7 GM/dL (11.7-16.9) 10/18/18 07:00 Hct 40.6 % (35.4-49) 10/18/18 07:00 MCV 92.9 fl (80-96) 10/18/18 07:00 MCH 31.4 pg (25.7-33.7) 10/18/18 07:00 MCHC 33.8 g/dl (32.0-35.9) 10/18/18 07:00 RDW 13.5 % (11.9-15.9) 10/18/18 07:00 Plt Count 206 K/MM3 (134-434) 10/18/18 07:00 MPV 8.8 fl (7.5-11.1) 10/18/18 07:00 Sodium 142 mmol/L (136-145) 10/18/18 07:00 Potassium 4.0 mmol/L (3.5-5.1) 10/18/18 07:00 Chloride 108 mmol/L (98-107) H 10/18/18 07:00 Carbon Dioxide 28 mmol/L (21-32) 10/18/18 07:00 Anion Gap 6 MMOL/L (8-16) L 10/18/18 07:00 BUN 11.4 mg/dL (7-18) 10/18/18 07:00 Creatinine 0.8 mg/dL (0.55-1.3) 10/18/18 07:00 Est GFR (CKD-EPI)AfAm 141.89 10/18/18 07:00 Est GFR (CKD-EPI)NonAf 122.43 10/18/18 07:00 Random Glucose 86 mg/dL (74-106) 10/18/18 07:00 Calcium 8.5 mg/dL (8.5-10.1) 10/18/18 07:00 Total Bilirubin 0.3 mg/dL (0.2-1) 10/18/18 07:00 AST 22 U/L (15-37) 10/18/18 07:00 ALT 52 U/L (13-61) 10/18/18 07:00 Alkaline Phosphatase 181 U/L (45-117) H 10/18/18 07:00 Total Protein 6.8 g/dl (6.4-8.2) 10/18/18 07:00 Albumin 3.6 g/dl (3.4-5.0) 10/18/18 07:00 RPR Titer Nonreactive (NONREACTIVE) 10/18/18 07:00 Assessment: 10/18/18 13:57 patient Aox3, no acute distress, agitated and irritable, + diaphoresis full ROM ambulating in the unit, no gait disturbance Plan: 1. Patient on [facility] at [facility] on methadone 60 mg, dose verified by Sania Nicolas RN at [facility] with CECILIA Amaya at [facility] re: patient last attendance to program and was medicated, patient was in our rehab 10/08/18 - 10/09/18 and was last medicated 10/09/18, d/t patient missing several days at his program, continue daily dose of methadone 30 mg and reassess as needed. 2. Continue detox 3. Continue to monitor
[2018-10-18] MEDS ORDERED: PRENATAL VITAMINS W/ FOLIC ACID TABLET (FP) PO SCH (10:00)
[2018-10-18 10:24] LABS: HEMATOCRIT 40.6 % (35.4-49); HEMOGLOBIN 13.7 GM/dL (11.7-16.9); MCH 31.4 pg (25.7-33.7); MCHC 33.8 g/dl (32.0-35.9); MEAN CELL VOLUME 92.9 fl (80-96); MEAN PLT VOLUME 8.8 fl (7.5-11.1); RBC 4.37 M/mm3 (4.00-5.60); RDW 13.5 % (11.9-15.9); WHITE BLOOD COUNT 6.1 K/mm3 (4.0-10.0)
[2018-10-18 10:31] LABS: ALBUMIN 3.6 g/dl (3.4-5.0); BILIRUBIN,TOTAL 0.3 mg/dL (0.2-1); BLOOD UREA NITROGEN 11.4 mg/dL (7-18); CALCIUM 8.5 mg/dL (8.5-10.1); CREATININE 0.8 mg/dL (0.55-1.3); TOT PROT 6.8 g/dl (6.4-8.2)
[2018-10-18 10:38] LABS: PLATELET COUNT 206 K/MM3 (134-434)
[2018-10-18] MEDS: METHADONE HCL 10 MG TABLET PO SCH (11:14)
[2018-10-18] MEDS: NICOTINE 7 MG/24 HOURS TOPICAL PATCH TD SCH (11:14)
[2018-10-18] MEDS: METHADONE HCL 10 MG TABLET (FOR DETOX USE ONLY) PO SCH (11:20)
[2018-10-18] MEDS: NICOTINE POLACRILEX 2 MG GUM BUC PRN ×2 (13:52→20:51)
[2018-10-18] MEDS: hydrOXYzine HCL 25 MG TABLET (FP) PO PRN (19:49)
[2018-10-18] MEDS ORDERED: cloNIDine HCL 0.1 MG TABLET PO ONE (20:22)
[2018-10-18] MEDS: THIAMINE HCL 100 MG TABLET (FP) PO SCH (22:09)
[2018-10-19] MEDS: METHADONE HCL 10 MG TABLET PO SCH (05:31)
[2018-10-19] MEDS ORDERED: diazePAM 5 MG TABLET PO SCH (06:00)
[2018-10-19 06:44] VITALS: BP 104/55; TEMP 97.7
[2018-10-19] MEDS: hydrOXYzine HCL 25 MG TABLET (FP) PO PRN (07:15)
[2018-10-19 07:37] VITALS: PULSE 91
--- NOTE | 2018-10-19 13:20 | PN ---
[facility] Progress Note Note: Pt was pacing and recruiting other patient into his room or going into other pts room and a suspicion of contraband was being distributed. Therefore security was asked to come up to the unit to search the room and ask pt if there was any contraband on his person. It was at this time when he started to display threatening behaviour towards staff, extensive de-escalation and therapeutic intervention attempted, however pt remained threatening and menacing to fellow staff, medical and security. pt was involuntary discharged to avoid further incident however, pt was hesitate to leave and continue to state to staff that he was going to fuck everyone up here. security called 911 for [place] police arrived and pt was escorted off the unit by police.
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
[2018-10-20] MEDS ORDERED: diazePAM 5 MG TABLET PO ONE (06:00)
== END 2018-10-19 09:19 | disposition left against medical advice (07) | DRG 773 ==
LOC: YASAS 11:54 → Y6N 17:15
PROVIDERS: ADMIT Surgery; ATTEND Surgery
PROC: HZ2ZZZZ Detoxification Services for Substance Abuse Treatment (ICD-10-PCS; principal; 2018-10-17)
DX: F13.230 Sedative, hypnotic or anxiolytic dependence with withdrawal, uncomplicated (principal); F11.20 Opioid dependence, uncomplicated; F14.20 Cocaine dependence, uncomplicated; F12.20 Cannabis dependence, uncomplicated; F17.210 Nicotine dependence, cigarettes, uncomplicated; J45.909 Unspecified asthma, uncomplicated; F31.9 Bipolar disorder, unspecified
CPT/HCPCS: 36415; 80053; 85027; 86593; J0735